=== PATIENT | female | born 1985 | race Two or more races ===

== ENCOUNTER 2018-02-05 13:20 | Emergency (ER) | payer OTHER ==
[~2018-02-05] VITALS: Ht 162.6 cm; Wt 100.2 kg
[~2018-02-05 13:20] MED LIST: PROMETHAZINE W118 ML PO; PROVENTIL3 ML/2.5 M IH
[2018-02-05] MEDS ORDERED: PROAIR HFA8.5 GM (14:11)
== END 2018-02-05 18:58 | disposition home or self-care (01) ==
LOC: ER 13:20
DX: J45.901 Unspecified asthma with (acute) exacerbation (principal)

== ENCOUNTER 2020-05-01 05:57 | Day surgery (SDC) | payer OTHER ==
[~2020-05-01 05:57] MED LIST changes: +MEGASE; +PROAIR HFA8.5 GM
[2020-05-01] MEDS ORDERED: KETO10TA2 PO (10:21)
== END 2020-05-01 14:50 | disposition home or self-care (01) ==
LOC: CIR.AMB 05:57
PROVIDERS: ATTEND Obstetrics & Gynecology
DX: N85.02 Endometrial intraepithelial neoplasia [EIN] (principal); Z20.822 Contact with and (suspected) exposure to COVID-19